=== PATIENT | male | born 1970 | race Caucasian/White ===

== ENCOUNTER 2017-09-01 12:54 | Emergency (ER) | payer OTHER ==
--- NOTE | 2017-09-01 13:57 | EDM.PDOC ---
Scribed by Tasha Rao 09/01/17 1357 for Brown Benavides MD ED HPI GENERAL MEDICAL PROBLEM - General Chief Complaint: Lower Extremity Injury/Pain Stated Complaint: [id number] BACK OF LEG Time Seen by Provider: 09/01/17 13:17 Source of Information: Reports: Patient, RN, RN Notes Reviewed History Limitations: Reports: No Limitations - History of Present Illness INITIAL COMMENTS - FREE TEXT/NARRATIVE: Patient arrives by POV with complaint of pain to the posterior left thigh sustained this morning while trying to dislodge a stuck ice auger. Patient states that he was flexed at the waist pulling on the auger when the auger suddenly spun and forced him forward with flexion at the waist and he felt a loud intense pop in the back of the left thigh with immediate onset of severe burning searing pain. Denies any other injury. Patient states that if he keeps his left hip flexed and the left knee it takes the tension of the left posterior thigh and the pain is minimal, however, with any movement or palpation the pain is severe. Onset: Today Duration: Constant Location: Reports: Lower Extremity, Left Quality: Reports: Burning Severity: Severe Associated Symptoms: Reports: No Other Symptoms Left Upper Leg Pain Score (Numeric/FACES): 2 - Related Data Allergies Allergy/AdvReac Type Severity Reaction Status Date / Time banana Allergy Itching Verified 09/01/17 13:01 Home Meds: Home Meds . [No Known Home Meds] 09/01/17 [History] Past Medical History - Past Surgical History GI Surgical History: Reports: Hernia Repair/Other Social & Family History - Family History Family Medical History: Noncontributory - Tobacco Use Smoking Status *Q: Former Smoker Used Tobacco, but Quit: Yes Month Tobacco Last Used: aug 2017 Second Hand Smoke Exposure: No - Recreational Drug Use Recreational Drug Use: No Review of Systems - Review of Systems Review Of Systems: ROS reveals no pertinent complaints other than HPI. ED EXAM, GENERAL - Physical Exam Exam: See Below Exam Limited By: No Limitations General Appearance: Alert, WD/WN, No Apparent Distress Throat/Mouth: Normal Voice, No Airway Compromise Head: Atraumatic, Normocephalic Neck: Normal Inspection Respiratory/Chest: No Respiratory Distress Cardiovascular: Normal Peripheral Pulses Back Exam: Normal Inspection, Full Range of Motion. No: CVA Tenderness (L), CVA Tenderness (R) Extremities: No Pedal Edema, Normal Capillary Refill, Leg Pain (left posterior thigh with mild soft tissue swelling. No visible bruising or deformity. Skin is intact. The mid to lower posterior thigh is acutely tender to palpation. Left knee and hip are normal to exam. There is no associated regional erythema or increased warmth. The distal left lower extremity is negative to exam.) Neurological: Alert, Oriented, Normal Cognition, No Motor/Sensory Deficits Skin Exam: Warm, Dry, Intact, Normal Color, No Rash Course - Vital Signs Last Recorded V/S: Last Vital Signs Temp 36.0 C 09/01/17 12:55 Pulse 86 09/01/17 12:55 Resp 18 09/01/17 12:55 BP 181/98 H 09/01/17 12:55 Pulse Ox 97 09/01/17 12:55 - Orders/Labs/Meds Orders: Active Orders 24 hr Category Date Time Status LENO Bandage [Elastic Wrap] [OM.PC] Routine Oth 09/01/17 13:46 Ordered DME for Discharge [COMM] Routine Oth 09/01/17 13:46 Ordered Departure - Departure Time of Disposition: 13:44 Disposition: Home, Self-Care 01 Condition: Good Clinical Impression: Left hamstring muscle strain Qualifiers: Encounter type: initial encounter Qualified Code(s): S76.312A - Strain of muscle, fascia and tendon of the posterior muscle group at thigh level, left thigh, initial encounter Hematoma of left thigh Qualifiers: Encounter type: initial encounter Qualified Code(s): S70.12XA - Contusion of left thigh, initial encounter - Discharge Information Instructions: Hamstring Strain, Hematoma, [id number] Forms: ED Department Discharge Additional Instructions: RX: Cyclobenzaprine 10 mg. *DO not drive while under the influence of this medication. Rest, ice pack and elevate left thigh. Use crutches and Leno wrap for compression of the left upper leg for the next 7 to 10 days. Use over the counter Ibuprofen (motrin/Advil 200mg): take 3 tablets by mouth every 6 hours as needed for pain take with food. Follow up in clinic in 7 to 10 days for recheck. - My Orders Last 24 Hours: My Active Orders 09/01/17 13:46 LENO Bandage [Elastic Wrap] [OM.PC] Routine DME for Discharge [COMM] Routine - Assessment/Plan Last 24 Hours: My Active Orders 09/01/17 13:46 LENO Bandage [Elastic Wrap] [OM.PC] Routine DME for Discharge [COMM] Routine I have read and agree with the documentation that has been completed regarding this visit. By signing this record, I attest that the documentation was completed in my physical presence and is an accurate record of the encounter.
== END 2017-09-01 13:55 | disposition home or self-care (01) ==
LOC: DL.ED 12:54
DX: S76.312A Strain of muscle, fascia and tendon of the posterior muscle group at thigh level, left thigh, initial encounter (principal); Z87.891 Personal history of nicotine dependence; Z91.018 Allergy to other foods; X50.9XXA Other and unspecified overexertion or strenuous movements or postures, initial encounter
CPT/HCPCS: 99283